=== PATIENT | female | born 1980 | race Caucasian/White ===

== ENCOUNTER → 2017-03-10 | Outpatient (CLI) | payer BC ==
--- NOTE | 2017-03-10 15:32 | US ---
EXAMINATION TYPE: US OB >= 14 wk fetus DATE OF EXAM: 03/10/2017 COMPARISON: None CLINICAL HISTORY: O76. Absent heart tones TECHNIQUE: Transabdominal (TA) GESTATIONAL AGE / DATING Physician Established: (16 weeks/0 days) EDC: 08/25/17 Dates by LMP: (16 weeks/0 days) EDC: 08/25/17 Dates by First Scan: no prior scan Dates by Current Scan: (15 weeks/0 days) EDC: 09/01/17 SURVEY IUP: Single PLACENTA: Anterior PREVIA: No Previa ISAÍAS: 10.0 cm Normal CERVICAL LENGTH (transabdominal: norm > 3.0cm): 4.0 cm BIOMETRY PRESENTATION: Breech LIE: Transverse BPD: 2.3 cm 13 weeks / 6 days HC: 9.8 cm 14 weeks / 4 days AC: 9.9 cm 15 weeks / 6 days FL: 1.8 cm 15 weeks / 3 days ESTIMATED WEIGHT IN GRAMS: 126 grams ESTIMATED WEIGHT IN LBS/OZ: 0 lbs. 4 oz. WEIGHT PERCENTAGE BASED ON ESTABLISHED DATES: 14.4% HC/AC: 0.99 Abnormal FL/AC: 18.38 Normal HEART RATE: unable to detect Unable to detect heart tones at this time. Fetus measures 15wks/0days IMPRESSION: Findings felt to reflect demise. Cardiac tones not detected.
[2017-03-10 16:41] LABS: Basophils % (A) 0 %; CH 32.2; CHCM 34.8; Eosinophils # (A) 0.1 k/uL (0-0.7); Eosinophils % (A) 1 %; Luc # (Auto) 0.14; Luc % (Auto) 2; Lymphocytes # (A) 1.5 k/uL (1.0-4.8); Lymphocytes % (A) 15 %; MCH 31.9 pg (25.0-35.0); MCHC 34.2 g/dL (31.0-37.0); Mean Platelet Volume 7.6; Monocytes # (A) 0.4 k/uL (0-1.0); Monocytes % (A) 4 %; Neutrophils # (A) 7.8 k/uL (1.3-7.7); Neutrophils % (A) 79 %; RBC 4.09 m/uL (3.80-5.40); RDW 13.3 % (11.5-15.5); WBC 9.9 k/uL (3.8-10.6); WBC (Perox) 10.18
== END | disposition home or self-care (01) ==
LOC: LABWHC1 14:50
PROVIDERS: ATTEND Obstetrics & Gynecology
DX: O76 Abnormality in fetal heart rate and rhythm complicating labor and delivery (principal); Z01.812 Encounter for preprocedural laboratory examination; O03.9 Complete or unspecified spontaneous abortion without complication; Z3A.15 15 weeks gestation of pregnancy
CPT/HCPCS: 36415; 76805; 85025; 86850; 86900; 86901

== ENCOUNTER 2017-03-12 07:18 | Observation (INO) | payer BC ==
[2017-03-12 07:27] VITALS: RESP 18
[2017-03-12] MEDS ORDERED: SODIUM CHLORIDE 0.9% 1,000 ML IV ONE (08:10)
--- NOTE | 2017-03-12 08:14 | ED ---
General Adult HPI <Souleymane Pinto - Last Filed: 03/12/17 08:19> - General Source: patient, RN notes reviewed Mode of arrival: ambulatory Limitations: no limitations <Ang Gold - Last Filed: 03/12/17 08:45> - General Chief complaint: Vaginal Bleeding Stated complaint: Miscarriage/schecduled for D & C @10:30/Lilian Time Seen by Provider: 03/12/17 08:06 - History of Present Illness Initial comments: 37-year-old female presented emergency department for vaginal bleeding . Patient states she is scheduled for D&C today. Patient states she is A2. Patient states she is 16 weeks along. Patient states that she's had increase in bleeding and lower abdominal pain and pressure. Patient states that she came here and did contact on-call [employer]. Patient states that Dr. Quintana supposed to perform a D&C today. Patient denies any headache or dizziness. Denies any chest pain or shortness of breath. (Ang Gold) - Related Data Home Medications Medication Instructions Recorded Confirmed No Known Home Medications [No 03/12/17 03/12/17 Known Home Medications] Allergies Allergy/AdvReac Type Severity Reaction Status Date / Time No Known Allergies Allergy Verified 03/12/17 07:34 Review of Systems ROS Other: All systems not noted in ROS Statement are negative. <BlairSouleymane - Last Filed: 03/12/17 08:19> ROS Other: All systems not noted in ROS Statement are negative. <Ang Gold - Last Filed: 03/12/17 08:45> ROS Statement: Those systems with pertinent positive or pertinent negative responses have been documented in the HPI. 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 History of Any Multi-Drug Resistant Organisms: None Reported Additional Past Surgical History / Comment(s): Right Wrist Cyst removal 1999. Tubal Ligation 2003. Tubal Reversal 2014 Past Anesthesia/Blood Transfusion Reactions: No Reported Reaction Additional Past Anesthesia/Blood Transfusion Reaction / Comment(s): States has a cold and non-prod. cough. No fever @ this time. Instructed to call Dr. Quintana' s office to let her know. Past Psychological History: No Psychological Hx Reported Smoking Status: Never smoker Past Alcohol Use History: None Reported Past Drug Use History: None Reported - Past Family History Mother Family Medical History: No Reported History Additional Family Medical History / Comment(s): Hyperthyroid Father Family Medical History: Cancer, Diabetes Mellitus Additional Family Medical History / Comment(s): Throat Cancer <Ang Gold - Last Filed: 03/12/17 08:45> General Exam Limitations: no limitations General appearance: alert, in no apparent distress Head exam: Present: atraumatic, normocephalic, normal inspection Respiratory exam: Present: normal lung sounds bilaterally. Absent: respiratory distress, wheezes, rales, rhonchi, stridor Cardiovascular Exam: Present: regular rate, normal rhythm, normal heart sounds. Absent: systolic murmur, diastolic murmur, rubs, gallop, clicks GI/Abdominal exam: Present: soft, tenderness (Mild to moderate left lower quadrant tenderness), normal bowel sounds. Absent: distended, guarding, rebound , rigid Skin exam: Present: warm, dry, intact, normal color. Absent: rash <Ang Gold - Last Filed: 03/12/17 08:45> Course <Souleymane Pinto - Last Filed: 03/12/17 08:19> <Ang Gold - Last Filed: 03/12/17 08:45> Vital Signs 03/12/17 03/12/17 07:23 08:10 Temperature 98.1 F Pulse Rate 87 72 Respiratory 18 18 Rate Blood Pressure 92/53 98/54 O2 Sat by Pulse 98 100 Oximetry - Reevaluation(s) Reevaluation #1: 03/12/17 08:[address] QUINTANA who would like a vaginal exam done otherwise will accept patient upstairs for preop. (Souleymane Pinto) Medical Decision Making <Souleymane Pinto - Last Filed: 03/12/17 08:19> - Lab Data Result diagrams: 03/12/17 07:53 <Ang Gold - Last Filed: 03/12/17 08:45> - Medical Decision Making Dr. Pinto discuss case with Dr. Quintana who will take the patient to the OR for D& C Prior to patient leaving the emergency department. Dr. Quintana did evaluate the patient and patient did deliver the fetus in the room. Patient has retained placenta and will go to the OR for this. (Ang Gold) - Lab Data Lab Results 03/12/17 Range/Units 07:53 WBC 8.0 (3.8-10.6) k/uL RBC 3.90 (3.80-5.40) m/uL Hgb 12.5 (11.4-16.0) gm/dL Hct 35.7 (34.0-46.0) % MCV 91.4 (80.0-100.0) fL MCH 32.0 (25.0-35.0) pg MCHC 35.0 (31.0-37.0) g/dL RDW 13.4 (11.5-15.5) % Plt Count 188 (150-450) k/uL Neutrophils % 70 % Lymphocytes % 22 % Monocytes % 5 % Eosinophils % 2 % Basophils % 0 % Neutrophils # 5.6 (1.3-7.7) k/uL Lymphocytes # 1.7 (1.0-4.8) k/uL Monocytes # 0.4 (0-1.0) k/uL Eosinophils # 0.2 (0-0.7) k/uL Basophils # 0.0 (0-0.2) k/uL Disposition <Souleymane Pinto - Last Filed: 03/12/17 08:19> Time of Disposition: 08:13 <Ang Gold - Last Filed: 03/12/17 08:45> Clinical Impression: Miscarriage, Vaginal bleeding, Retained placenta Disposition: ADMITTED IP TO THIS HOSP Condition: Fair Referrals: Eunice Sanchez MD [Primary Care Provider] - 1-2 days
[2017-03-12 08:28] LABS: Basophils % (A) 0 %; CH 32.2; CHCM 35.4; Eosinophils # (A) 0.2 k/uL (0-0.7); Eosinophils % (A) 2 %; HCT 35.7 % (34.0-46.0); HDW 2.92; HGB 12.5 gm/dL (11.4-16.0); Luc # (Auto) 0.14; Luc % (Auto) 2; Lymphocytes # (A) 1.7 k/uL (1.0-4.8); Lymphocytes % (A) 22 %; MCV 91.4 fL (80.0-100.0); Mean Platelet Volume 7.4; Monocytes # (A) 0.4 k/uL (0-1.0); Monocytes % (A) 5 %; Neutrophils # (A) 5.6 k/uL (1.3-7.7); Neutrophils % (A) 70 %; RDW 13.4 % (11.5-15.5); WBC (Perox) 8.08
--- NOTE | 2017-03-12 09:01 | P.PCN ---
Date of Procedure: 03/12/17 Preoperative Diagnosis: 16 week intrauterine demise, spontaneous amniorrhexis at 0645, clear fluid Postoperative Diagnosis: Status post vaginal delivery 16 week intrauterine demise, placenta in situ Procedure(s) Performed: Vaginal delivery 16 week intrauterine demise, consented in situ Anesthesia: none Surgeon: Kendal Quintana Estimated Blood Loss (ml): 5 IV fluids (ml): 200 Urine output (ml): 0 Pathology: other (Fetus to pathology) Condition: stable Disposition: observation Description of Procedure: Was called to the emergency room this morning with history of my patient having sustained spontaneous amniorrhexis at home, at approximately 0645 hours. Patient reported a large amount of rectal pressure. She has a known intrauterine demise, 16 weeks by dates, breech presentation, verified by ultrasound yesterday. She is scheduled for D and E today in the operating room , and received misoprostol intravaginally 1 dose last night, 200 mcg. Upon examining the patient, she was sitting in a small amount of vaginal blood. On digital examination the fetus is noted to be sitting in the vagina. With a moderate amount of expulsive efforts the fetus delivers in the breech presentation. scores are 0 and 0 at one and 5 minutes respectively. The cord is clamped with a cord clamp and the umbilical cord is cut. Upon patient and her 's request, they look at the fetus with me. It appears to be intact male fetus, no obvious omphalocele, hydrocephalus, or other anomalies to gross inspection. The uterus is massaged, bleeding is minimal. Placenta does not deliver after several more efforts of maternal pushing. Patient will remain nothing by mouth, and proceed up to preoperative area for D& C for placental extraction. Spiritual support as well as other options are discussed at this time. Patient is Rh+.
[2017-03-12] MEDS ORDERED: ceFAZolin 2 GM in SODIUM CHLORIDE 0.9% 100 ML IVPB STA (09:12)
[2017-03-12 10:04] VITALS: BP 114/56; PULSE 85; TEMP 97.5
== END 2017-03-12 18:13 | disposition home or self-care (01) ==
LOC: EC 07:18 → 6PED 09:42
PROVIDERS: ADMIT Obstetrics & Gynecology; ATTEND Obstetrics & Gynecology
DX: O03.6 Delayed or excessive hemorrhage following complete or unspecified spontaneous abortion (principal); Z3A.16 16 weeks gestation of pregnancy
CPT/HCPCS: 99285; 36415; 85025; G0378; J0690; 88300; 88305

== ENCOUNTER 2017-03-12 10:25 | Day surgery (SDC) | payer BC ==
[2017-03-11 09:22] VITALS: BMI 28.8
[~2017-03-12 10:25] MED LIST: DEXAMETHASONE SOD PHOSPHATE 10 MG/ML 1 ML VIAL IV ONE; HYDROmorphone 0.5 MG/0.5 ML SYRINGE IVP PRN; LACTATED RINGERS 1,000 ML IV SCH; LIDOCAINE 1% 20 ML VIAL (10MG/ML) FOR IV START INTRADERMA PRN; ONDANSETRON 4 MG/2 ML VIAL IVP ONE; Pre Op ABX Message 1 EACH MISC MISCELLANE ONE; SCOPOLAMINE 1.5MG/72HR PATCH TRANSDERM ONE
[2017-03-12 10:30] VITALS: RESP 16
[2017-03-12] MEDS ORDERED: MIDAZOLAM 2 MG/2 ML VIAL ONE (11:41)
[2017-03-12] MEDS ORDERED: METHYLERGONOVINE 0.2 MG/ML 1 ML AMP ONE (11:41)
[2017-03-12] MEDS ORDERED: KETOROLAC 30 MG/ML 1 ML VIAL ONE (11:41)
[2017-03-12] MEDS ORDERED: PROPOFOL 10 MG/ML 20 ML VIAL IV ONE (11:41)
[2017-03-12] MEDS ORDERED: fentaNYL (PF) 50 MCG/ML 2 ML AMP ONE (11:41)
--- NOTE | 2017-03-12 12:02 | P.OP ---
Date of Procedure: 03/12/17 Preoperative Diagnosis: Known IUFD at 16 weeks gestation, passed fetus in the ER. Retained placenta. Postoperative Diagnosis: Pathology pending Procedure(s) Performed: Suction dilatation and curettage of retained products of conception Anesthesia: MAC Surgeon: Kendal Quintana Vest Baster #1: Stated None Estimated Blood Loss (ml): 300 IV fluids (ml): 300 Urine output (ml): 300 Pathology: other (Placenta) Condition: stable Disposition: PACU Description of Procedure: Patient is brought to bring suite where general anesthetic is administered. She is placed in the dorsolithotomy position. Antibiotics have been given in the ER. A type is A+. The appropriate timeout is performed to assure proper patient and procedural identification. The cervix, vagina and abdomen are all prepped and draped in usual sterile fashion. Examination under anesthesia reveals a 14 week size anteverted uterus, negative adnexa bilaterally. Weighted speculum was placed into the vagina. Anterior lip of the cervix is grasped with an Allis clamp. Uterus sounds to a depth of 14 cm in the anterior vertical position, gently. A #12 curved curet is used and placed to the dome of the fundus. Under appropriate suction pressures the cavity is curettaged. The cord clamp that had been placed in the ER is sent with the specimen. When I am convinced that the entire cavity has been evacuated a sharp large curette is used gently to assure that no retained products of conception are present. Methergine was given. Uterus is massaged. At the end of the procedure there is no vaginal bleeding. Total estimated blood loss 300 mL's. ALLERGIES gadolinium prior to leaving the operative suite. Estimated blood loss 300 mL's. Fluid replacement 300 mL's. Urine 300 mL's. All sponge needle and instrument counts are correct at the end of the procedure. Peripads placed and patient is brought back to recovery room in very good condition with stable vital signs including pulse of 70, blood pressure 90/50.
[2017-03-12 12:19] VITALS: TEMP 97.3
[2017-03-12 14:03] VITALS: BP 95/60; PULSE 75
== END 2017-03-12 14:12 | disposition home or self-care (01) ==
LOC: OR 10:25
PROVIDERS: ATTEND Obstetrics & Gynecology
DX: O02.1 Missed abortion (principal)
CPT/HCPCS: 88305; 88300; 59820; J2250; J1100; J2210; J2405; J3010; J1885; J2704; 86850; 86900; 86901

== ENCOUNTER 2018-01-24 09:15 | Emergency (ER) | payer SELFPAY ==
--- NOTE | 2018-01-24 09:46 | ED ---
General Adult HPI - General Chief complaint: Abdominal Pain Stated complaint: left side pain Time Seen by Provider: 01/24/18 09:33 Source: patient, RN notes reviewed Mode of arrival: ambulatory Limitations: no limitations - History of Present Illness Initial comments: Patient 37-year-old female presented to the emergency room today with a chief complaint of pain in the left side of the abdomen. Patient states she's noticed the pain discomfort with certain movements and if she coughs. She states she thought it was muscular. She says was a little worse this morning. She states that facility was getting better. Does have a 2-year-old home. Denies any specific injury or trauma. States at rest no pain or discomfort. No other symptoms. Patient denies any recent fever, chills, shortness of breath , chest pain, back pain, nausea or vomiting, numbness or tingling, dysuria or hematuria, constipation or diarrhea, headaches or visual changes, or any other complaints. - Related Data Home Medications Medication Instructions Recorded Confirmed No Known Home Medications 03/12/17 03/12/17 Allergies Allergy/AdvReac Type Severity Reaction Status Date / Time No Known Allergies Allergy Verified 01/24/18 09:22 Review of Systems ROS Statement: Those systems with pertinent positive or pertinent negative responses have been documented in the HPI. ROS Other: All systems not noted in ROS Statement are negative. 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 History of Any Multi-Drug Resistant Organisms: None Reported Additional Past Surgical History / Comment(s): Right Wrist Cyst removal 1999, D& C. Tubal Ligation 2003. Tubal Reversal 2014 Past Anesthesia/Blood Transfusion Reactions: No Reported Reaction Additional Past Anesthesia/Blood Transfusion Reaction / Comment(s): States has a cold and non-prod. cough. No fever @ this time. Instructed to call Dr. Quintana' s office to let her know. Past Psychological History: No Psychological Hx Reported Smoking Status: Never smoker Past Alcohol Use History: Rare Past Drug Use History: None Reported - Past Family History Mother Family Medical History: No Reported History Additional Family Medical History / Comment(s): Hyperthyroid Father Family Medical History: Cancer, Diabetes Mellitus Additional Family Medical History / Comment(s): Throat Cancer General Exam - General Exam Comments Initial Comments: General: The patient is awake and alert, in no distress, and does not appear acutely ill. Eye: extra-ocular movements are intact. No nystagmus. There is normal conjunctiva bilaterally. No signs of icterus. Ears, nose, mouth and throat: There are moist mucous membranes and no oral lesions. Neck: The neck is supple, there is no tenderness or JVD. Cardiovascular: There is a regular rate and rhythm. No murmur, rub or gallop is appreciated. Respiratory: Lungs are clear to auscultation, respirations are non-labored, breath sounds are equal. No wheezes, stridor, rales, or rhonchi. Gastrointestinal: Soft, non-distended, non-tender abdomen without masses or organomegaly noted. There is no rebound or guarding present. No CVA tenderness. Musculoskeletal: Normal ROM, no tenderness. Sensation intact.. Neurological: A&O x 3. CN II-XII intact, There are no obvious motor or sensory deficits. Coordination appears grossly intact. Speech is normal. Skin: Skin is warm and dry and no rashes or lesions are noted. Psychiatric: Cooperative, appropriate mood & affect, normal judgment. Limitations: no limitations Course Vital Signs 01/24/18 09:20 Temperature 98.1 F Pulse Rate 86 Respiratory 20 Rate Blood Pressure 115/71 O2 Sat by Pulse 100 Oximetry Medical Decision Making - Medical Decision Making 37-year-old female presented to the emergency room today with chief complaint of abdominal pain left side with movement and when she coughs or sneezes. Patient has no bony tenderness. No pleuritic pain. Pain is located in the left side of the abdomen when she coughs. Describes as a burning sensation. On last a few seconds and goes away. Patient's pain is felt that it could be muscular skeletal. Was discussed about further evaluation here with labs. At this time patient feels comfortable following up with family doctor will return if symptoms increase or worsen. Is advised using anti-inflammatories for pain at this time. Disposition Clinical Impression: Abdominal pain Disposition: HOME SELF-CARE Condition: Good Instructions: Abdominal Pain (ED) Additional Instructions: Please use ibuprofen for pain as discussed. Please follow-up the family doctor over the next 2-5 days if symptoms are not improving. Please return here to the emergency room symptoms increase or worsen. Is patient prescribed a controlled substance at d/c from ED?: No Referrals: Eunice Sanchez MD [Primary Care Provider] - 1-2 days Time of Disposition: 09:46
[2018-01-24 10:01] VITALS: BP 115/71; PULSE 86; RESP 20; TEMP 98.1
== END 2018-01-24 10:05 | disposition home or self-care (01) ==
LOC: EC 09:15
DX: R10.9 Unspecified abdominal pain (principal); R05 Cough
CPT/HCPCS: 99283